=== PATIENT | female | born 1995 | race African-American/Black ===

== ENCOUNTER 2020-04-16 07:00 | Inpatient (IN) | payer OTHER ==
[2020-04-16] MEDS: DEXTROSE 5%-LACTATED RINGERS 1,000 ML IV SCH (08:30)
[2020-04-16 09:42] VITALS: BMI 25.2
[2020-04-16 10:57] LABS: BASO % 0.3 % (0-2.0); HEMATOCRIT 31.2 % (32.4-45.2); HEMOGLOBIN 9.6 GM/dL (10.7-15.3); MCH 22.8 pg (25.7-33.7); MCHC 30.9 g/dl (32.0-36.0); MEAN CELL VOLUME 73.8 fl (80-96); MEAN PLT VOLUME 10.3 fl (7.5-11.1); NEUT % 74.7 % (42.8-82.8); PLATELET COUNT 160 K/MM3 (134-434); RBC 4.23 M/mm3 (3.60-5.2); RDW 15.1 % (11.6-15.6); WHITE BLOOD COUNT 7.5 K/mm3 (4.0-10.0)
[2020-04-16 11:05] LABS: INR 0.94 (0.83-1.09); PROTHROMBIN TIME (PATIENT) 11.6 SEC (9.7-13.0)
[2020-04-16 11:08] LABS: ACTIVATED PTT 25.8 SECONDS (25.2-36.5)
[2020-04-16 12:05] LABS: CALCIUM 8.7 mg/dL (8.5-10.1)
[2020-04-16 12:06] LABS: BLOOD UREA NITROGEN 6.5 mg/dL (7-18)
[2020-04-16 12:09] LABS: CREATININE 0.5 mg/dL (0.55-1.3)
[2020-04-16 12:13] LABS: HIV INTERPRETATION NEGATIVE (NEGATIVE)
[2020-04-16] MEDS ORDERED: OXYTOCIN 20 UNITS in 0.9% NS 20 UNIT/1,000 ML INFUS.BAG IV ONE (16:33)
[2020-04-16] MEDS: OXYTOCIN 20 UNITS in 0.9% NS 20 UNIT/1,000 ML INFUS.BAG IV SCH (18:00)
[2020-04-16] MEDS ORDERED: BISACODYL 10 MG SUPP.RECT RC PRN (18:25)
[2020-04-16] MEDS ORDERED: WITCH HAZEL 50% (TUCKS) 40 PAD/JAR PAD TP PRN (18:25)
[2020-04-16] MEDS ORDERED: ACETAMINOPHEN 325 MG TABLET (FP) PO PRN (18:25)
[2020-04-16] MEDS ORDERED: BENZOCAINE 20% 57 GM BOTTLE TP PRN (18:25)
[2020-04-16] MEDS ORDERED: METHYLERGONOVINE MALEATE 0.2 MG/1 ML AMP IM PRN (18:25)
[2020-04-16] MEDS ORDERED: BENZOCAINE 28 GM HEMORRHOIDAL OINTMENT TP PRN (18:25)
[2020-04-16] MEDS ORDERED: oxyCODONE HCL 5 MG TABLET PO PRN (18:25)
[2020-04-16] MEDS ORDERED: IBUPROFEN 600 MG TABLET (FP) PO ONE (19:36)
[2020-04-16] MEDS: IBUPROFEN 600 MG TABLET (FP) PO PRN ×2 (19:37→23:46)
[2020-04-17 08:16] LABS: BASO % 0.3 % (0-2.0); EOS % 0.1 % (0-4.5); HEMATOCRIT 29.5 % (32.4-45.2); HEMOGLOBIN 9.2 GM/dL (10.7-15.3); LYMPH % 18.5 % (8-40); MEAN PLT VOLUME 10.2 fl (7.5-11.1); NEUT % 70.1 % (42.8-82.8); PLATELET COUNT 154 K/MM3 (134-434); RBC 3.99 M/mm3 (3.60-5.2); RDW 14.9 % (11.6-15.6); WHITE BLOOD COUNT 11.6 K/mm3 (4.0-10.0)
[2020-04-17] MEDS: PRENATAL VITAMINS W/ FOLIC ACID TABLET (FP) PO SCH (09:59)
[2020-04-17] MEDS ORDERED: SENNOSIDES/DOCUSATE COMBO (SENNA PLUS) TABLET (UD) PO PRN (22:00)
[2020-04-17] MEDS: OXYTOCIN 20 UNITS in 0.9% NS 20 UNIT/1,000 ML INFUS.BAG IV SCH (23:03)
[2020-04-17] MEDS: DEXTROSE 5%-LACTATED RINGERS 1,000 ML IV SCH (23:03)
[2020-04-18 09:43] VITALS: BP 98/57; PULSE 94; TEMP 98
[2020-04-18] MEDS: PRENATAL VITAMINS W/ FOLIC ACID TABLET (FP) PO SCH (10:42)
[2020-04-18] MEDS: IBUPROFEN 600 MG TABLET (FP) PO PRN (12:34)
== END 2020-04-18 12:35 | disposition home or self-care (01) | DRG 560 ==
LOC: JLDR 07:00 → J3W 21:35
PROVIDERS: ADMIT Obstetrics & Gynecology; ATTEND Obstetrics & Gynecology
PROC: 10E0XZZ Delivery of Products of Conception, External Approach (ICD-10-PCS; principal; 2020-04-16)
PROC: 10907ZC Drainage of Amniotic Fluid, Therapeutic from Products of Conception, Via Natural or Artificial Opening (ICD-10-PCS; 2020-04-16)
PROC: 0W8NXZZ Division of Female Perineum, External Approach (ICD-10-PCS; 2020-04-16)
DX: O70.0 First degree perineal laceration during delivery (principal); Z3A.38 38 weeks gestation of pregnancy; Z37.0 Single live birth
CPT/HCPCS: 36415; 59409; 80048; 85025; 85610; 85730; 86780; 86803; 86850; 86900; 86901; 87389; C9803; U0003